=== PATIENT | male | born 1985 ===

== ENCOUNTER 2017-02-18 11:16 | Emergency (ER) | payer SELFPAY ==
[2017-02-18] MEDS ORDERED: Ketorolac Tromethamine 60 MG/2 ML VIAL ONE (12:03)
--- NOTE | 2017-02-18 12:24 | RAD ---
CHEST 1 VIEW: Date: 02/18/17 HISTORY: Cough. FINDINGS: The heart size is normal. The lungs are well expanded without focal areas of consolidation, pneumotho races, or pleural effusions. IMPRESSION: No radiographic evidence of acute cardiopulmonary process. POS: JOSUÉ
--- NOTE | 2017-02-18 12:26 | RAD ---
RADIOGRAPH LUMBAR SPINE 3 VIEWS: HISTORY: A 31-year-old male with low back pain for 3 days. FINDINGS: Alignment is normal. There is minimal anterior wedging of L4, L1, and T12, which appear chronic. Th ere is no evidence of fracture, significant osteophytes, or any other focal osseous abnormality. IMPRESSION: No major pathology identified. donald Ghotra POS: [facility]OR
== END 2017-02-18 12:54 | disposition home or self-care (01) ==
LOC: EDBD 11:16 → ERS 11:16
DX: M54.5 Low back pain (principal); J20.9 Acute bronchitis, unspecified; F17.210 Nicotine dependence, cigarettes, uncomplicated; X50.1XXA Overexertion from prolonged static or awkward postures, initial encounter
CPT/HCPCS: 71010; 72100; 96372; 99406; J1885

== ENCOUNTER 2017-03-05 11:20 | Emergency (ER) | payer SELFPAY ==
[2017-03-05 11:48] LABS: #Lymphocytes 1.3 thou/uL (1.20-3.40); #Monocytes 0.5 thou/uL (0.11-0.59); #Neutrophils 5.1 thou/uL (1.40-6.50); %Basophils 0.4 % (0.0-1.0); %Eosinophils 0.3 % (0.0-10.0); %Lymphocytes 19.4 % (21.0-51.0); %Monocytes 6.8 % (0.0-10.0); %Neutrophils 73.2 % (42.0-75.0); Hemoglobin 15.4 g/dL (14.0-18.0); Mean Corpuscular HGB CONC 34.5 g/dL (32.0-36.0); Mean Corpuscular Hemoglobin 32.6 pg (27.0-31.0); Mean Corpuscular Volume 94.4 fl (80.0-94.0); Mean Platelet Volume 7.7 fL (7.4-10.4); Platelet Count 179 thou/uL (130-400); RBC Distribution Width 11.1 % (11.5-14.5); Red Blood Cell (RBC) Count 4.71 mill/uL (4.70-6.10); White Blood Cell (WBC) Count 6.9 thou/uL (4.8-10.8)
[2017-03-05 12:09] LABS: ALT (SGPT) 16 U/L (8-55); AST (SGOT) 22 U/L (5-34); Albumin 3.8 g/dL (3.5-5.0); Alkaline Phosphatase 44 U/L (40-150); Anion Gap 11 mmol/L (10-20); BUN (Urea Nitrogen) 13 mg/dL (8.9-20.6); Bilirubin, Total 0.4 mg/dL (0.2-1.2); Calc. Creatinine Clearance 0 mL/min (70-130); Calcium 8.9 mg/dL (7.8-10.44); Carbon Dioxide 23 mmol/L (22-29); Chloride 106 mmol/L (98-107); Estimated GFR-MDRD Greater than 90; Globulin 2.3 g/dL (2.4-3.5); Glucose 114 mg/dL (70-105); Potassium 3.8 mmol/L (3.5-5.1); Protein, Total 6.1 g/dL (6.0-8.3); Sodium 136 mmol/L (136-145)
[2017-03-05] MEDS ORDERED: Ondansetron ODT 4 MG TAB ONE (13:13)
[2017-03-05 13:35] LABS: Bilirubin Negative (Negative); Blood, Urine Negative (Negative); Clarity CLEAR (Clear); Glucose, Urine (Dipstick) Negative (Negative); Leukocyte Negative (Negative); Nitrite Negative (Negative); Protein, Urine (Dipstick) Negative (Neg-Trace); Specific Gravity, Urine 1.029 (1.002-1.036); pH, Urine 7.5 (5.0-9.0)
== END 2017-03-05 14:05 | disposition home or self-care (01) ==
LOC: ERS 11:20
DX: R11.2 Nausea with vomiting, unspecified (principal); F17.210 Nicotine dependence, cigarettes, uncomplicated; Z71.6 Tobacco abuse counseling
CPT/HCPCS: 36415; 80053; 81003; 85025; 99406; Q0162